=== PATIENT | female | born 1955 | race Hispanic/Latino ===

== ENCOUNTER → 2018-12-30 | Outpatient (CLI) | payer OTHER | END | disposition home or self-care (01) | LOC: OIH 09:16 | PROVIDERS: ATTEND Internal Medicine | DX: M19.071 Primary osteoarthritis, right ankle and foot (principal); M25.774 Osteophyte, right foot; M47.819 Spondylosis without myelopathy or radiculopathy, site unspecified; I25.10 Atherosclerotic heart disease of native coronary artery without angina pectoris; I10 Essential (primary) hypertension | CPT/HCPCS: 71046; 73600; 73620 ==

== ENCOUNTER 2019-03-13 20:21 | Emergency (ER) | payer OTHER ==
[2019-03-13] MEDS ORDERED: LABETALOL 20 MG/4 ML DISP.SYRIN IV ONE (21:05)
[2019-03-13 21:06] LABS: EOSINOPHILS % (AUTO) 2.6 % (0.0-8.0); HEMATOCRIT 41.2 % (36-48); LYMPHOCYTES % (AUTO) 24.3 % (21.0-51.0); MEAN CORPUSCULAR HEMOGLOBIN 29.6 pg (27.0-33.0); MEAN CORPUSCULAR HGB CONC 34.5 g/dL (32.0-36.0); MEAN CORPUSCULAR VOLUME 85.8 fL (79-99); MONOCYTES % (AUTO) 5.8 % (3.0-13.0); NEUTROPHILS % (AUTO) 66.3 % (40.0-77.0); NUCLEATED RED BLOOD CELLS 0.1 % (0.0-0.19); PLATELET COUNT (AUTO) 303 K/uL (130-400); RED CELL DISTRIBUTION WIDTH 13.5 % (11.0-15.5); WHITE BLOOD COUNT (AUTO) 8.2 K/uL (4.8-10.8)
[2019-03-13 21:14] LABS: CREATININE 1.2 mg/dL (0.5-1.5); POTASSIUM 3.6 mmol/L (3.5-5.1)
== END 2019-03-13 22:35 | disposition home or self-care (01) ==
LOC: EDH 20:21
DX: G51.0 Bell's palsy (principal); I10 Essential (primary) hypertension; E03.9 Hypothyroidism, unspecified; E78.00 Pure hypercholesterolemia, unspecified; Z90.710 Acquired absence of both cervix and uterus
CPT/HCPCS: 36415; 70450; 80048; 85025; 93005; 96374

== ENCOUNTER → 2019-07-01 | Outpatient (CLI) | payer OTHER | END | disposition home or self-care (01) | LOC: OIH 10:38 | PROVIDERS: ATTEND Internal Medicine | DX: I10 Essential (primary) hypertension (principal) | CPT/HCPCS: 71046 ==

== ENCOUNTER → 2020-05-12 | Outpatient (CLI) | payer OTHER | END | disposition home or self-care (01) | LOC: RAH 08:37 | PROVIDERS: ATTEND Internal Medicine | DX: E27.40 Unspecified adrenocortical insufficiency (principal); N18.30 Chronic kidney disease, stage 3 unspecified | CPT/HCPCS: 76770 ==

== ENCOUNTER 2024-07-20 16:30 | Emergency (ER) | payer OTHER ==
[~2024-07-20] VITALS: Ht 154.9 cm; Wt 90.7 kg
[2024-07-20 16:39] VITALS: BP 182/72; PULSE 67; RESP 20; TEMP 98
--- NOTE | 2024-07-20 16:42 | ERN ---
ED Note History of Present Illness Stated Complaint: BELLS PALSY Chief Complaint: Face Pain/Problem Time Seen by MD: 16:40 Dictation: PATIENT IS A 68-YEAR-OLD FEMALE COMING IN TODAY WITH A RIGHT FACIAL DROOP, PTOSIS ONSET WAS FRIDAY ON AWAKENING. OTHERWISE NEUROLOGICALLY UNREMARKABLE, WENT TO HER DOCTOR ON FRIDAY WAS DIAGNOSED WITH BYNUM'S PALSY AND PACED ON FAMCICLOVIR. SHE CAME IN TODAY BECAUSE SHE CONCERNED SHE MAY HAVE HAD A STROKE EVEN THOUGH HER DOCTOR IS ASSURED HER THAT SHE IS NEUROLOGICALLY INTACT. Allergies: Coded Allergies: No Known Drug Allergies (Unverified Allergy, Unknown, 03/14/19) Past Medical History History: Not Applicable RN Note Reviewed/Agreed w/PFSH: Yes Review of System Dictation CONSTITUTIONAL: NEGATIVE EXCEPT FOR HPI HEAD/FACE: NEGATIVE EXCEPT FOR HPI RIGHT FACIAL DROOP WITH PTOSIS AND NASOLABIAL FLATTENING EENT: NEGATIVE EXCEPT FOR HPI RESPIRATORY: NEGATIVE EXCEPT FOR HPI GASTROINTESTINAL/ABDOMINAL: NEGATIVE EXCEPT FOR HPI GENITOURINARY: NEGATIVE EXCEPT FOR HPI MUSCULOSKELETAL: NEGATIVE EXCEPT FOR HPI INTEGUMENTARY: NEGATIVE EXCEPT FOR HPI NEUROLOGICAL/PSYCH: NEGATIVE EXCEPT FOR HPI HEMATOLOGIC/LYMPHATIC: NEGATIVE EXCEPT FOR HPI ALL SYSTEMS NEGATIVE, EXCEPT NOTED ABOVE. 13 POINT REVIEW OF SYSTEMS ASSESSED AND ALL NEGATIVE EXCEPT FOR ABOVE. Initial Vital Sign VS Vital Signs Date Time Temp Pulse Resp B/P (MAP) Pulse Ox O2 Delivery O2 Flow Rate FiO2 07/20/24 16:39 98.1 67 20 182/72 98 Room Air 0 Physical Exam Dictation VITAL SIGNS REVIEWED GENERAL APPEARANCE: ALERT, ORIENTED X 3, NO ACUTE DISTRESS, WELL DEVELOPED, NOURISHED. HEAD AND FACE: NON-TRAUMATIC. EYES: PERRL, PINK CONJUNCTIVAS, EYELID NO TRAUMA, ANTERIOR CHAMBER WITH ARCUS SENILIS. EARS: PINNAS INTACT AND NO SIGNS OF TRAUMA OR ERYTHEMA EAR CANALS CLEAR AND NO DISCHARGE TM NO ERYTHEMA NOSE: NO DISCHARGE, NO BLEEDING. OROPHARYNX: MOUTH NORMAL, TONGUE PINK, PHARYNX CLEAR,NO ERYTHEMA, TONSILS NO EXUDATES, NO ABSCESSES NOTED, MUCOUS MEMBRANE MOIST NECK: SUPPLE, NON-TENDER, NO THYROMEGALY, NO MASSES, NO JVD, NO BRUITS BREAST:DEFERRED CHEST:NO TENDERNESS, NO CREPITUS, NO PARADOXICAL MOVEMENT, NO RETRACTIONS LUNGS:CLEAR, WELL-VENTILATED, SYMMETRIC, NO RALES, NO WHEEZING, NO RHONCHI, NO STRIDOR, GOOD BREATH SOUNDS BILATERALLY HEART: REGULAR RATE, REGULAR RHYTHM, NO MURMUR, NO GALLOPS VASCULAR: NO PERIPHERAL EDEMA, ABDOMEN: SOFT, POSITIVE BOWEL SOUNDS, NONDISTENDED, NO GUARDING, NONTENDER, NO REBOUND, NO MASSES NO HEPATOMEGALY, NO SPLENOMEGALY, NO KAM'S SIGN, NO HERNIAS. RECTAL: DEFERRED GENITAL: DEFERRED NEUROLOGICAL: NORMAL SPEECH, RIGHT FACIAL DROOP WITH FOREHEAD INVOLVED. NASOLABIAL FLATTENING PTOSIS NOTED. OTHERWISE NEUROLOGICALLY INTACT SPEECH IS CLEAR NO DRIFT GAIT IS STEADY MUSCULOSKELETAL: NECK NONTENDER, FULL RANGE OF MOTION, BACK NONTENDER, FULL RANGE OF MOTION, EXTREMITIES: NONTENDER, FULL RANGE OF MOTION SKIN: COLOR PINK, DRY, NO TURGOR, NO RASH, NO LACERATIONS, NO ABRASIONS, NO CONTUSIONS. LYMPHATIC: DEFERRED Results (Laboratory/Radiology) Laboratory/Radiology HISTORY: Right facial droop COMPARISON: None TECHNIQUE: Multiple sequential axial images of the head were obtained from the base of the skull through vertex. Patient was not given contrast through intravenous route. FINDINGS: The ventricles and extraventricular CSF spaces are nondilated for patient's age. There is no midline shift, mass effect or herniation. No acute intracranial bleed is seen. Visualized portion of the paranasal sinuses are grossly within normal limits. IMPRESSION: 1. No acute intracranial bleed is seen. Labs Reviewed?: Yes ED Course ED Course Orders Procedure Category Date Status Time Ct Head/Brain W/O CT 07/20/24 Resulted Contrast 16:40 Vital Signs Date Time Temp Pulse Resp B/P (MAP) Pulse Ox O2 Delivery O2 Flow Rate FiO2 07/20/24 16:39 98.1 67 20 182/72 98 Room Air 0 1702/PATIENT REMAINS NEUROLOGICALLY INTAC EXCEPT FOR RIGHT NERVE FACIAL PALSY Medical Decision Making MDM MEDICAL DECISION-MAKING BASED ON CT OF THE HEAD TO RULE OUT CENTRAL NERVOUS SYSTEM LESION. CT NEGATIVE PATIENT DIAGNOSED WITH RIGHT BYNUM'S PALSY AND TOLD TO CONTINUE HER ANTIVIRALS FROM HER DOCTOR SEE HIM TOMORROW OR THE NEXT DAY FOR MANAGE DX & DISP Disposition: Discharge Departure Impression: Primary Impression: Right-sided Bynum's palsy Condition: Stable Additional Instructions: FOLLOW-UP WITH PRIMARY CARE PROVIDER IN 1 TO 2 DAYS. TAKE MEDICATIONS DIRECTED HERE IN THE EMERGENCY ROOM. OKAY TO CONTINUE HOME MEDICATIONS UNLESS OTHERWISE DISCUSSED DURING YOUR VISIT IN THE EMERGENCY ROOM TODAY. RETURN TO YOUR NEAREST EMERGENCY ROOM IF SYMPTOMS WORSEN OR IF THERE IS NO IMPROVEMENT. CALL 911 IF YOU NEED IMMEDIATE ASSISTANCE. TAKE TYLENOL OR MOTRIN O [id number] NEEDED AND IF NO CONTRAINDICATIONS ARE PRESENT. INCREASE ORAL HYDRATION. A WOUND CULTURE OR URINE CULTURE WAS ORDERED HERE IN THE EMERGENCY ROOM DEPARTMENT PLEASE FOLLOW-UP WITH PRIMARY CARE PROVIDER AND ADVISE THEM TO GET REPEAT PORTS FROM OUR FACILITY. IF YOU HAD ANY YEN WRAP/SPLINTS THAT WERE APPLIED HERE, PLEASE DO NOT REMOVE THEM UNTIL YOU SEE YOUR PRIMARY CARE OR SPECIALTY. CONTINUE ALL MEDICATIONS AND TREATMENTS FOR YOUR DOCTOR, SEE HIM IN THE NEXT 1-2 DAYS FOR MANAGEMENT USE ARTIFICIAL TEARS DROPS/[id number] ONE DROP IN RIGHT EYE EVERY 2-3 HOURS WHILE AWAKE. USE ARTIFICIAL TEARS OINTMENT/[id number] TO THE LOWER LID OF THE RIGHT EYE AND TAPE IT SHUT AT NIGHT TO PROTECT YOUR CORNEA. Referrals: GWEN SANDERSON MD (PCP) Time of Disposition: 17:06 I have reviewed the case, and I agree with, Diagnosis and Plan ANDREA YANG NP Jul 20, 2024 16:42
--- NOTE | 2024-07-20 17:00 | HMCIMG ---
CT HEAD/BRAIN W/O CONTRAST HISTORY: Right facial droop COMPARISON: None TECHNIQUE: Multiple sequential axial images of the head were obtained from the base of the skull through vertex. Patient was not given contrast through intravenous route. FINDINGS: The ventricles and extraventricular CSF spaces are nondilated for patient's age. There is no midline shift, mass effect or herniation. No acute intracranial bleed is seen. Visualized portion of the paranasal sinuses are grossly within normal limits. IMPRESSION: 1. No acute intracranial bleed is seen. CT was performed with one or more following dose reduction techniques: automated exposure control, adjustment of the mA and kv according to patient's size, or use of a iterative reconstruction technique.
== END 2024-07-20 18:45 | disposition left against medical advice (07) ==
LOC: EDH 16:30
DX: G51.0 Bell's palsy (principal)
CPT/HCPCS: 70450; 99284

== ENCOUNTER → 2024-07-28 | Outpatient (CLI) | payer OTHER ==
--- NOTE | 2024-07-28 11:34 | HMCIMG ---
Exam: Noncontrast MRI brain REASON: G45.9 Transient cerebral ischemic attack, unspecified COMPARISON: There are no prior MRI scans available for comparison. TECHNIQUE: Routine cerebral imaging protocol was performed. Exam was performed without IV contrast. CONTRAST: None FINDINGS: There are a few scattered focal areas of increased signal in the central white matter consistent with small vessel disease, mild in degree. There is otherwise normal appearing brain parenchyma. There are no focal mass lesions. Ventricles and sulci appear normal. Posterior fossa and brainstem structures appear unremarkable. There is no evidence of intracranial hemorrhage. Diffusion-weighted images are negative for an acute ischemic process. There are no abnormal fluid collections. Extracranial soft tissues appear normal as well. IMPRESSION: 1. Isolated to foci of increased signal in the deep central white matter consistent with small vessel disease, mild in degree for age. 2. Otherwise unremarkable exam, no evidence of an acute ischemic event.
== END | disposition home or self-care (01) ==
LOC: RAH 10:46
PROVIDERS: ATTEND Internal Medicine
DX: G45.9 Transient cerebral ischemic attack, unspecified (principal); G51.0 Bell's palsy; R51.9 Headache, unspecified
CPT/HCPCS: 70551